=== PATIENT | female | born 2000 | race Caucasian/White ===

== ENCOUNTER 2024-01-03 21:13 | Emergency (ER) | payer OTHER ==
[2024-01-03] MEDS ORDERED: Ondansetron ODT 4 MG TAB ONE ×2 (22:05→22:08)
[2024-01-03 22:13] LABS: Bilirubin Negative (Negative); Blood, Urine Negative (Negative); CAUTI Indications for Culture Dysuria,urgency,freq; Clarity Clear (Clear); Glucose, Urine (Dipstick) Normal (Negative); Ketone, Urine 20 mg/dL (Negative); Leukocyte 25 Leu/uL (Negative); Nitrite Negative (Negative); Protein, Urine (Dipstick) Negative (Neg-Trace); RBC/HPF 0-3 HPF (0-3); Specific Gravity, Urine 1.006 (1.002-1.036); Urobilinogen Normal mg/dL (Less than 2)
[2024-01-03 22:14] LABS: Bacteria/HPF 1+ HPF (None Seen)
[2024-01-03 22:15] LABS: Pregnancy Test - Urine (BHCG) Negative (Negative); Pregu Control Background? CLEAR/WHITE (CLR/WHITE); Pregu Control Bar Appear? YES (CONTROL BAR); Specific Gravity 1.006 (1.002-1.036)
[2024-01-03 22:16] LABS: Urine Culture Reflex No No
[2024-01-03 22:32] LABS: #Basophils 0.04 10x3/uL (0.0-0.2); %Basophils 0.8 % (0.0-1.0); %Eosinophils 1.4 % (0.0-10.0); %Lymphocytes 29.8 % (21.0-51.0); %Monocytes 9.5 % (0.0-10.0); %Neutrophils 57.9 % (42.0-75.0); Hemoglobin 12.8 g/dL (12.0-16.0); Mean Corpuscular HGB CONC 34.6 g/dL (32.0-36.0); Mean Corpuscular Hemoglobin 29.8 pg (27.0-31.0); Mean Platelet Volume 10.3 fL (7.4-10.4); Platelet Count 265 10x3/uL (130-400); RBC Distribution Width 12.3 % (11.5-14.5)
[2024-01-03 22:52] LABS: ALT (SGPT) 16 U/L (8-55); AST (SGOT) 23 U/L (5-34); Albumin 3.9 g/dL (3.5-5.0); Alkaline Phosphatase 55 U/L (40-110); Anion Gap 16 mmol/L (10-20); BUN (Urea Nitrogen) 11 mg/dL (7.0-18.7); Bilirubin, Total 0.3 mg/dL (0.2-1.2); Calc. Creatinine Clearance 0 mL/min (70-130); Calcium 9.1 mg/dL (7.8-10.44); Carbon Dioxide 23 mmol/L (22-29); Chloride 104 mmol/L (98-107); Estimated GFR 106; Globulin 3.7 g/dL (2.4-3.5); Glucose 89 mg/dL (70-105); Lipase 21 U/L (8-78); Potassium 4.1 mmol/L (3.5-5.1); Protein, Total 7.6 g/dL (6.0-8.3); Sodium 139 mmol/L (136-145)
[2024-01-03] MEDS ORDERED: Metoclopramide HCl 10 MG (2 mL) VIAL ONE (23:18)
[2024-01-04] MEDS ORDERED: Ketorolac Tromethamine 30 MG (1 mL) VIAL ONE ×2 (00:08→00:10)
== END 2024-01-04 00:23 | disposition home or self-care (01) ==
LOC: ERS 21:13
DX: R11.2 Nausea with vomiting, unspecified (principal)
CPT/HCPCS: 36415; 80053; 81001; 81025; 83690; 85025; 96361; 96374; 96375; J1885; J2765; Q0162